=== PATIENT | female | born 1980 ===

== ENCOUNTER 2020-10-05 06:38 | Day surgery (SDC) | payer OTHER | END 2020-10-05 09:43 | disposition home or self-care (01) | LOC: AMB-ENDOS 06:38 | PROVIDERS: ATTEND Surgery | DX: D13.1 Benign neoplasm of stomach (principal); K44.9 Diaphragmatic hernia without obstruction or gangrene; Z20.822 Contact with and (suspected) exposure to COVID-19 ==